=== PATIENT | female | born 1990 | race Caucasian/White ===

== ENCOUNTER → 2022-09-10 08:18 | Outpatient (CLI) | payer OTHER, SELFPAY ==
[2022-09-11 09:51] LABS: Strep Grp B PCR NEG for Grp B Strep
== END ==
PROVIDERS: Visit Provider Obstetrics & Gynecology
DX: Z34.83 Encounter for supervision of other normal pregnancy, third trimester (principal); Z3A.36 36 weeks gestation of pregnancy
CPT/HCPCS: 87653

== ENCOUNTER 2022-09-29 03:41 | Inpatient (IN) | payer OTHER, SELFPAY ==
--- NOTE | 2022-09-29 04:38 | PM.OBHP.1 ---
OB HPI Date/Time Date of admission: 09/29/22 Date Patient Seen: 09/29/22 Time Patient Seen: 04:38 History of Present Condition Chief complaint: Labor : 2 Para: 1 Estimated Date of Delivery: 10/02/22 Estimated Gestational Age (weeks): 39 Narrative: Deanne Arriaza is a 31 year old female admitted in active labor History of Present care: good care, initiated at week # (8), number of visits (15) and pounds weight gain (42) Dating criteria: LMP confirmed by 1st trimester US Ultrasounds: normal mid trimester US Obstetrical complications: none Medical complications: none Preadmission Labs Blood type: 0 (-) negative -: Antibody screen: negative, GBS status: negative, HBsAG: negative, HIV: negative and RPR/VDLR: negative -: Chlamydia screen: not detected and Gonorrhea screen: not detected -: Rubella: not immune and Varicella: not immune HCAB: negative Cell-free DNA: Normal 1 hr GTT: 78 Prior (ies) History: 02/23/2020 39 weeks vaginal delivery female 7 lb 13 oz Evaluation Evaluation Baseline heart rate: 140 Variability: Moderate (11-25) monitor accelerations: Present Monitor Decelerations: Absent Contraction Frequency (minutes): 3 Uterine Contraction Intensity: Strong/Firm Category of Tracing: Reactive Status: Category l Dilation (cm): 8 Effacement (%): 90 station: -1 [facility] Medical History (Updated 09/15/22 @ 08:36 by Melinda Devine MD) Chronic UTI (~2009) Kidney stone (~2009) Surgical History (Updated 06/10/22 @ 09:13 by Carey Ponce RN) Hx of RICH Family History (Updated 07/18/22 @ 20:01 by Siobhan Tillman) Grandfather Colon cancer Grandmother Diabetes mellitus Atrial fibrillation Hyperlipidemia Mother Fibrocystic breast changes Father Hypertension Social History marital status: number of children: 1 household members: spouse and children lives independently: Yes caregiver/support person: Yes housing: house pets and animals: Yes (1 dog, 1 cat) 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[employer]) current occupational exposures/hazards: No special sadi needs: No travel history: recent (domestic only) seatbelt use: always water heater temp set < 120 deg: Yes working smoke detector in home: Yes fire extinguisher in home: Yes carbon monox detector in home: Yes firearms in home: Yes firearms unloaded and locked: Yes do you feel safe at home: Yes Smoking Status: Never smoker second hand exposure: No alcohol intake: former (rarely when not ) substance use type: does not use during the past year weight has: decreased > 10 lbs (intentional) well-balanced diet: daily or most days daily servings fruits/ve or more times/day caffeine: Yes (aware of 200 mg limit) Type(s) of exercise: walking and yoga Meds Home Medications and Allergies Home Medications Medication Instructions Recorded Confirmed Type cephalexin 250 mg capsule 250 mg PO .COMPLEX 06/10/22 09/29/22 History prenat.vits,halima,rgo-[id number]-[id number] 1 tab PO DAILY 06/10/22 09/29/22 History amoxicillin 500 mg tablet 500 mg PO BID 09/29/22 09/29/22 History Allergies Allergy/AdvReac Type Severity Reaction Status Date / Time Sulfa (Sulfonamide Allergy Mild Rash Verified 09/29/22 04:32 Antibiotics) Review of Systems Review of Systems Narrative: Patient began having contractions approximately 11 hours ago. No rupture membranes. No headaches. OB Exam Vital signs Blood Pressure: 130/93 Pulse Rate: 103 Narrative Exam Narrative: HEENT exam within normal limits. Lungs are clear to auscultation percussion. Heart is regular rate and rhythm no S3-S4 murmurs. Abdomen is gravid with vertex fetus. Extremities without edema and nontender. Assessment and Plan Assessment and Plan Assessment and Plan narrative: 39 week 4 day gestation in active labor. Patient requested a epidural. Anticipate vaginal delivery.
[2022-09-29 04:46] VITALS: BP 130/93; PULSE 103
[2022-09-29 04:49] LABS: Add Manual Diff / Slide Review NO; Basophils Absolute Auto 0 /uL (0-100); Basophils Percent Auto 0.3 % (0-2); Eosinophils Absolute Auto 0 /uL (0-450); Eosinophils Percent Auto 0.4 % (2-4); Hematocrit 36.8 % (36-46); Hemoglobin 12.8 g/dL (12.0-16.0); Lymphocytes Absolute Auto 1300 /uL (1100-4500); Lymphocytes Percent Auto 14.5 % (25-40); Mean Corpuscular HGB Conc 34.7 % (30-36); Mean Corpuscular Hemoglobin 32.5 PG (26-34); Mean Corpuscular Volume 93.7 fL (80-100); Monocytes Absolute Auto 400 /uL (0-900); Monocytes Percent Auto 4.3 % (3-14); Neutrophils Absolute Auto 7400 /uL (1500-7000); Neutrophils Percent Auto 80.5 % (50-75); Platelet Count 163 X10^3/uL (150-400); Red Blood Cell Count 3.93 X10^6/uL (4.0-5.2); Red Cell Distribution Width 13.7 % (11.6-14.8); White Blood Cell Count 9.2 X10^3/uL (4.5-11.0)
[2022-09-29] MEDS: FENT 2MCG/ML BUPIV 0.125% EPI 200 MCG/100 ML PLAST..BAG 8 MCG EPIDURAL (05:00)
--- NOTE | 2022-09-29 05:36 | PM.OBPRVD ---
Labor & Delivery Delivery date: 09/29/22 Intrapartal Events: None Cervical ripening method: none Induction method: none Delivery monitor: external FHT and external uterine Route of delivery: L&D Laceration Description: Perineal - 1st Degree Delivery repair: chromic (3-0) Estimated blood loss (mL): 100 Anesthesia Type: Epidural Narrative: Patient arrived in Labor and delivery in active labor at 8 cm dilated with intact bag of water. She had spontaneous rupture membranes. She received an epidural catheter when complete. heart tones category 2. The fetus had decelerations with contractions and pushing. Patient delivered spontaneously, over an intact perineum. The viable female was placed on maternal abdomen. After the cord stopped pulsating the cord was clamped, cut, and cord bloods obtained. The placenta delivered spontaneously, intact, with 3 vessels. There were no cervical or vaginal tears. A first-degree perineal tear was repaired with 3 0 chromic suture in the usual 2 layer fashion. Both infant mother doing well. Baby 1: Infant gender: Female Presentation: vertex Position: Right Occiput Posterior Placenta delivery description: Spontaneous Cord Vessel Description: 3 Vessels and Around Extremity x1 (Around right shoulder) score (1 min): 9 score (5 min): 9 Plan for aftercare: Routine care
[2022-09-29] MEDS: DERMOPLAST SPRAY 20% 60 ML 1 SPRAY TOP (08:07)
[2022-09-29 08:08] VITALS: TEMP 36.6
[2022-09-29] MEDS: LANOLIN OINT 7 GM 1 APPLIC TOP (08:08)
[2022-09-29] MEDS: PRENATAL VIT,CALC/IRON/FOLIC 1 TABLET 1 TAB PO (08:08)
[2022-09-29] MEDS: IBUPROFEN 600 MG TABLET PO ×3 (08:08→20:49)
--- NOTE | 2022-09-29 20:02 | PM.OBPN.1 ---
Subjective - OB Subjective Patient comments: no complaints and tolerating diet Sanborn baby status: doing well and nursing well feeding status: exclusively breast feeding Narrative: Patient is 16 hours doing well. No headaches. She is without difficulty. Bleeding is appropriate. No pain other than mild cramping. Date Patient Seen: 09/29/22 Time Patient Seen: 20:03 Interval history: day 1 doing well Exam Vital Signs (past 8 hours): Blood pressure 151/81, pulse of 85, temperature 98.4? Narrative Exam Narrative: Abdomen is soft, nontender. Uterus is firm, at U, nontender. Extremities with trace edema, nontender. Objective Labs 09/29/22 04:30 Labs: Laboratory Results - last 24 hr 09/29/22 09/29/22 04:30 04:30 WBC 9.2 RBC 3.93 L Hgb 12.8 Hct 36.8 MCV 93.7 MCH 32.5 MCHC 34.7 RDW 13.7 Plt Count 163 Neut % (Auto) 80.5 H Lymph % (Auto) 14.5 L [place] % (Auto) 4.3 Eos % (Auto) 0.4 L Baso % (Auto) 0.3 Neut # (Auto) 7400 H Lymph # (Auto) 1300 [place] # (Auto) 400 Eos # (Auto) 0 Baso # (Auto) 0 Blood Type O Negative Antibody Screen Positive Antibody Identification Anti-D Assessment & Plan Plan day: 1 plan OB: routine care Time Spent With Patient Time: Total time spent is greater than 50% in coordination of care (as documented) at patient's floor/unit and/or counseling patient: Time with patient: less than 15 minutes
[2022-09-30] MEDS: IBUPROFEN 600 MG TABLET PO (05:01)
[2022-09-30 06:34] LABS: Add Manual Diff / Slide Review NO; Basophils Absolute Auto 0 /uL (0-100); Basophils Percent Auto 0.3 % (0-2); Eosinophils Absolute Auto 0 /uL (0-450); Eosinophils Percent Auto 0.7 % (2-4); Hematocrit 31.6 % (36-46); Hemoglobin 10.9 g/dL (12.0-16.0); Lymphocytes Absolute Auto 1200 /uL (1100-4500); Lymphocytes Percent Auto 18.9 % (25-40); Mean Corpuscular HGB Conc 34.4 % (30-36); Mean Corpuscular Hemoglobin 32.6 PG (26-34); Mean Corpuscular Volume 94.7 fL (80-100); Monocytes Absolute Auto 300 /uL (0-900); Monocytes Percent Auto 4.8 % (3-14); Neutrophils Absolute Auto 4900 /uL (1500-7000); Neutrophils Percent Auto 75.3 % (50-75); Platelet Count 134 X10^3/uL (150-400); Red Blood Cell Count 3.34 X10^6/uL (4.0-5.2); White Blood Cell Count 6.5 X10^3/uL (4.5-11.0)
--- NOTE | 2022-09-30 07:16 | P.DS_ITS ---
Discharge Providers Provider Date of admission: 09/29/22 03:41 Discharge Date: 09/30/22 Primary care physician: Clare COOK Provider Consults: 09/29/22 04:30 Consult to Anesthesiology Urgent Comment: Consulting Provider: Jordan Lau Reason for consultation: Epidural 09/30/22 05:33 Consult to Vice President Of Customer Service Routine Comment: Discharge provider: Melinda Devine MD Summary Hospital Course Date Patient Seen: 09/30/22 Time Patient Seen: 07:16 Diagnoses: Vaginal delivery Hospital Course: Patient arrived on Labor and delivery in active labor. She received an epidural catheter for pain control. She had a first-degree perineal tear that was repaired. She denies headaches, scotomata, epigastric pain. She is urinating and ambulating well. Pain is under control. Breast-feeding is going well. No concerns. Peripartum Data Infant Delivery Method: Natural Vaginal Laceration Description: Perineal - 1st Degree Procedures: Epidural catheter, spontaneous vaginal delivery, repair of first-degree perineal tear complications: none [place] 1: Gender: Female Disposition of : home Discharge Diagnosis (1) Vaginal delivery: Status: Acute Status at Discharge Cognitive/behavioral status at discharge: oriented Functional status at discharge: independent ambulation Overall status at discharge: patient is progressing back to baseline Time Spent with Patient Time attestation: Total time spent providing and/or coordinating discharge services: Time spent: Less than 30 minutes Objective Labs 09/30/22 06:11 Labs: Laboratory Results - last 24 hr 09/30/22 06:11 WBC 6.5 RBC 3.34 L Hgb 10.9 L Hct 31.6 L MCV 94.7 MCH 32.6 MCHC 34.4 RDW 14.0 Plt Count 134 L Neut % (Auto) 75.3 H Lymph % (Auto) 18.9 L [place] % (Auto) 4.8 Eos % (Auto) 0.7 L Baso % (Auto) 0.3 Neut # (Auto) 4900 Lymph # (Auto) 1200 [place] # (Auto) 300 Eos # (Auto) 0 Baso # (Auto) 0 Exam Vital Signs (past 8 hours): Blood pressure 112/73, pulse of 83, temperature 97.1? Narrative Exam Narrative: Abdomen is soft, nontender. Uterus is firm, at U, nontender. Mild lochia. Repair intact. Extremities without edema and nontender. Discharge Plan Discharge Plan Patient Disposition: Home Discharge orders & Medications Prescriptions: Continued prenat.vits,halima,[id number] Tablet 1 tab PO DAILY cephalexin 250 mg capsule 250 mg PO .COMPLEX Rx Instructions: 250 mg orally take prior to intercourse; Discontinued amoxicillin 500 mg tablet 500 mg PO BID Patient Comments: Take 1 tablet by mouth twice a day for 10 days Follow up/Referrals: Sandra Ramos MD [Physician] - 11/11/22 10:00 am (6 week appt: November 11 @ 10am w/ Dr. Ramos) Diet/Activity/Treatments Diet: Regular Activity: Nothing in vagina for 6 weeks Skin/Wound/Dressing Care Report to your healthcare provider any signs of infection, such as:: chills, fever Visit Report/Discharge Packet Stand Alone Forms: Discharge: Care, Patient Portal/API Discharge Data Primary Care Provider: Clare Velasco
== END 2022-09-30 09:45 | disposition home or self-care (01) | DRG 807 ==
PROVIDERS: Admitting Provider Specialist; Referring Provider Specialist; Visit Provider Specialist
DX: O76 Abnormality in fetal heart rate and rhythm complicating labor and delivery (principal); Z37.0 Single live birth; O70.0 First degree perineal laceration during delivery; Z3A.39 39 weeks gestation of pregnancy; Z67.41 Type O blood, Rh negative
CPT/HCPCS: 36415; 59050; 59410; 85025; 86850; 86870; 86900; 86901; G0379